=== PATIENT | male | born 1970 | race Caucasian/White ===

== ENCOUNTER 2017-01-25 21:43 | Emergency (ER) | payer OTHER ==
[~2017-01-25] VITALS: Ht 167.6 cm; Wt 86.2 kg
[2017-01-25 22:00] VITALS: BP 159/74
--- NOTE | 2017-01-26 15:16 | PHYS DOC ---
Past Medical History Past Medical History: Bipolar, Bronchitis, Hypertension, Seizure Additional Past Medical Histor: last seizure age 13-no on meds,personality disorder Past Surgical History: Other Additional Past Surgical Histo: left foot, right shoulder, right knee Alcohol Use: None Drug Use: None Adult General Chief Complaint Chief Complaint: MULTIPLE COMPLAINTS HPI HPI 46-year-old male now presents the emergency department complaining of productive cough for more than a week. Patient is concerned because his cough AWAY. HE SOMETIMES FEELS LIGHTHEADED WHEN COUGHING. MILD SORE THROAT PREVIOUSLY NOW RESOLVED. PERSISTENT COUGH. PATIENT IS A SMOKER Review of Systems Review of Systems Constitutional: Denies fever or chills [] Eyes: Denies change in visual acuity, redness, or eye pain [] HENT: Denies nasal congestion or sore throat [] Respiratory: Denies cough or shortness of breath [] Cardiovascular: No additional information not addressed in HPI [] GI: Denies abdominal pain, nausea, vomiting, bloody stools or diarrhea [] : Denies dysuria or hematuria [] Musculoskeletal: Denies back pain or joint pain [] Integument: Denies rash or skin lesions [] Neurologic: Denies headache, focal weakness or sensory changes [] Endocrine: Denies polyuria or polydipsia [] All other systems were reviewed and found to be within normal limits, except as documented in this note. Allergies Allergies Allergies Coded Allergies Type Severity Reaction Last Updated Verified divalproex sodium Allergy Unknown 01/19/16 Yes Physical Exam Physical Exam Appearing patient no acute distress clear lungs separate occasional scattered rhonchi .regular rate and rhythm. Constitutional: Well developed, well nourished, no acute distress, non-toxic appearance. [] HENT: Normocephalic, atraumatic, bilateral external ears normal, oropharynx moist, no oral exudates, nose normal. [] Eyes: PERRLA, EOMI, conjunctiva normal, no discharge. [] Neck: Normal range of motion, no tenderness, supple, no stridor. [] Cardiovascular:Heart rate regular rhythm, no murmur [] Lungs & Thorax: Bilateral breath sounds clear to auscultation [] Abdomen: Bowel sounds normal, soft, no tenderness, no masses, no pulsatile masses. [] Skin: Warm, dry, no erythema, no rash. [] Back: No tenderness, no CVA tenderness. [] Extremities: No tenderness, no cyanosis, no clubbing, ROM intact, no edema. [] Neurologic: Alert and oriented X 3, normal motor function, normal sensory function, no focal deficits noted. [] Psychologic: Affect normal, judgement normal, mood normal. [] Current Patient Data Vital Signs Vital Signs Date Time Temp Pulse Resp B/P (MAP) Pulse Ox O2 Delivery O2 Flow Rate FiO2 01/25/17 22:00 99.1 77 22 159/74 (102) 98 Room Air 99.1 EKG EKG [] Course & Med Decision Making Course & Med Decision Making Pertinent Labs and Imaging studies reviewed. (See chart for details) Signs and symptoms consistent with pulmonary infection viral versus possible atypical process. Discuss the patient will x-ray chest to rule out alternate etiology such as mass or infiltrative process the less likely. Anticipate treatment with atypical infection coverage and cough control. Patient refused to wait for x-ray and cyst on leaving AGAINST MEDICAL ADVICE. He had been here with several family members who each had various complaints, and apparently waiting for a chest x-ray was not convenient for him he left without prescriptions or instructions as well [] Dragon Disclaimer Dragon Disclaimer This electronic medical record was generated, in whole or in part, using a voice recognition dictation system. Departure Departure Impression: Primary Impression: Left against medical advice Additional Impressions: Upper respiratory infection Cough Disposition: 07 AGAINST MEDICAL ADVICE Condition: GOOD Referrals: ALVARADO LEYVA MD (PCP) Problem Qualifiers ANNE MARIE KIM MD Jan 26, 2017 15:16
== END 2017-01-26 01:05 | disposition left against medical advice (07) ==
LOC: ER 21:43
DX: J06.9 Acute upper respiratory infection, unspecified (principal); I10 Essential (primary) hypertension; F31.9 Bipolar disorder, unspecified; F17.200 Nicotine dependence, unspecified, uncomplicated; Z88.8 Allergy status to other drugs, medicaments and biological substances
CPT/HCPCS: 99281